=== PATIENT | female | born 1985 | race Caucasian/White ===

== ENCOUNTER 2018-02-21 10:44 | Emergency (ER) | payer BC ==
[~2018-02-21] VITALS: Ht 157.5 cm; Wt 90.9 kg
[2018-02-21 10:46] VITALS: BP 133/93; Ht 157.5 cm; Wt 90.9 kg
== END 2018-02-21 12:05 | disposition left against medical advice (07) ==
LOC: D.ER 10:44
DX: R51 Headache (principal)

== ENCOUNTER 2018-03-01 12:47 | Emergency (ER) | payer MEDICAID ==
[~2018-03-01] VITALS: Ht 157.5 cm; Wt 90.9 kg
[2018-03-01 12:59] VITALS: Ht 157.5 cm; Wt 90.9 kg
[2018-03-01] MEDS ORDERED: AMOXICILLIN500 M1 PO (13:41)
[2018-03-01 13:47] VITALS: BP 124/70
== END 2018-03-01 13:49 | disposition home or self-care (01) ==
LOC: D.ER 12:47
DX: J01.90 Acute sinusitis, unspecified (principal); R09.89 Other specified symptoms and signs involving the circulatory and respiratory systems; F17.200 Nicotine dependence, unspecified, uncomplicated

== ENCOUNTER 2019-10-23 07:11 | Inpatient (IN) | payer OTHER ==
[~2019-10-23] VITALS: Ht 157.5 cm; Wt 120.7 kg
[2019-10-23] VITALS (12 sets, daily range): BP systolic 105–158; BP diastolic 53–87; Ht 157.5 cm; Wt 120.7 kg
--- NOTE | 2019-10-23 | NUR ---
PT STATES PAIN MED HASN'T HELPED HER PAIN MUCH. FOB IN ROOM HELPING WITH BABY.
--- NOTE | ~2019-10-23 | OP ---
PATIENT NAME: MEAGHAN ELLIOTT MEDICAL RECORD: [id number] :[birth year] LOCATION:[id number] ADMISSION DATE:10/23/19 SURGEON: JUVE SARMIENTO MD DATE OF OPERATION: 10/23/2019 PREOPERATIVE DIAGNOSES: 1. Advanced maternal age. 2. at 39 weeks' gestation. 3. History of prior section. 4. Undesired fertility. POSTOPERATIVE DIAGNOSES: 1. Advanced maternal age. 2. at 39 weeks' gestation. 3. History of prior section. 4. Undesired fertility. PROCEDURES: 1. Repeat low transverse section. 2. Bilateral tubal ligation using a Butternut technique. SURGEON: Juve Sarmiento MD ANESTHESIOLOGIST: Dr. Carlitos Tran ANESTHETIC: Spinal. FINDINGS: Viable male , vertex presentation, Apgars 9 and 9. Nuchal cord times 1 reduced. Weight 8 pounds 6 ounces. Unremarkable anatomy. SPECIMENS REMOVED: 1. Placenta. 2. Tubes bilaterally. SPECIMEN DISPOSITION: 1. Discarded. 2. To pathology. ESTIMATED BLOOD LOSS: Less than or equal to 750 cc. FLUIDS: 2400 cc of lactated Ringer's. URINE OUTPUT: 40 cc of clear urine. COMPLICATIONS: None. DRAINS: Connor to gravity. INDICATIONS: The patient is a 34-year-old multiparous female who presents after 39 weeks gestation for repeat . The patient has undesired fertility. The risks, benefits, as well as alternatives to tubal ligation have been discussed. The patient wishes to proceed. DESCRIPTION OF PROCEDURE: After informed consent was assured, the patient was taken to the operating room where anesthetic is obtained. The patient is now OPERATIVE REPORT [id number] MEAGHAN ELLIOTT prepped and draped on the table. An incision was made over the old scar, carried down to the underlying layer of the fascia, which was opened in the midline and extended out laterally. The rectus bellies were dissected free superiorly and inferiorly and then in the midline. Peritoneum was entered sharply and bladder blade inserted. Bladder flap was developed and the bladder blade now reinserted. Low transverse hysterotomy was performed and delivered onto the abdomen atraumatically after rupture of membranes. Cord was doubly clamped and cut and the infant was passed off to the attendant. The uterus is not exteriorized, cleared of all clot and debris after placenta delivered. The hysterotomy was closed with running stitch of Vicryl. Interrupted stitches were applied at the left corner to obtain hemostasis. The attention directed to the right tube where it is elevated and a window made in the antimesenteric portion. Two ligatures were passed through here and secured distally and proximally and the intervening segment of tube removed. This was repeated on the contralateral side. All ostia sites are inspected and found to be hemostatic and cauterized. The uterus was returned to the abdomen. Inspection of the hysterotomy reveals adequate hemostasis. The fascia was now closed with a running stitch of looped PDS. Subcutaneous tissues were irrigated, bleeding vessels cauterized, and the deep space is closed with Monocryl. The 3-0 Monocryl stitch was used to reapproximate the skin. Dermabond was applied. Sponge, lap, needle counts were correct times 3 at the close of this procedure. TRANSINT:[id number] Voice Confirmation ID: [id number] DOCUMENT ID: [id number] JUVE SARMIENTO MD CC: [id number] DICTATION DATE: 10/23/19 1315 PEANUT PICKER: 10/24/19 0042 ADM IN [facility] [address] [id number]
[~2019-10-23 07:11] MED LIST: AMOXICILLIN500 M1 PO
[2019-10-23] MEDS ORDERED: BENADRYL50 MG PO (07:43)
[2019-10-23] MEDS ORDERED: SLEEP AID25 M1 PO (07:44)
[2019-10-23 08:31] LABS: HEMATOCRIT 36.3 % (36.0-48.0); HEMOGLOBIN 11.8 g/dL (12-16); MCHC 32.5 g/dL (31.0-37.0); MCV 95.3 fL (80.0-100.0); RBC 3.81 10x6/uL (4.00-5.40); RDW 13.9 % (11.5-14.5); WBC 10.2 10x3/uL (4.8-10.8)
[2019-10-23 09:31] LABS: BILIRUBIN NEGATIVE (NEGATIVE); GLUCOSE NEGATIVE (NEGATIVE); KETONE NEGATIVE (NEGATIVE); NITRITE NEGATIVE (NEGATIVE); UROBILINOGEN NORMAL (NORMAL)
[2019-10-23 09:34] LABS: BACTERIA MODERATE /hpf (NEGATIVE); EPITHELIAL CELLS 0-5 /hpf (0-5); RED CELLS - URINE 0-5 /hpf (0-5); WHITE CELLS - URINE RARE /hpf (NEGATIVE)
--- NOTE | 2019-10-23 11:24 | NUR ---
BABY BOY @ 1056 PLACENTA @ 105
--- NOTE | 2019-10-23 12:18 | MORECARE ---
CASE MANAGEMENT DISCHARGE SUMMARY PATIENT: MEAGHAN ELLIOTT UNIT: [id number] ADM DATE: 10/23/19 AGE: 34 : 81 SEX: F ROOM/BED: D.1274 AUTHOR: JJ JIMENEZ PHYSICIAN: REFERRING PHYSICIAN: MARK SARMIENTO MD DATE OF SERVICE: 10/23/19 Discharge Plan Patient Name: MEAGHAN ELLIOTT [facility] [facility] 1985 Planned Disposition: Home Anticipated Discharge Date: 10/27/19 Discharge Date: Expected LOS: 4 Initial Reviewer: [email or web address] Initial Review Date: 10/23/2019 Generated: 10/23/19 1:18 pm Patient Name: MEAGHAN ELLIOTT Page [phone] at 1218 All edits/amendments must be made on the electronic document DICTATION DATE: 10/23/19 121 MALTED MILK MIXER: RAUL 10/23/19 1218 RPT#: [id number] DC DATE: STATUS: ADM IN [facility] [address] [place] [address] END OF REPORT
--- NOTE | 2019-10-23 12:19 | NUR ---
RECEIVED PT FROM VIA BED TO ROOM 1274. BED LOCKED AND PLACED IN LOW POSITION. PT AWAKE. VSS. HRRR WITHOUT AUDIBLE MURMUR. BBS CLEAR. BS [id number]. ABDOMEN SOFT/NON-DISTENDED. FUNDUS FIRM AT 1/U. RUBRA LOCHIA SMALL AMT. NO CLOTS EXPRESSED ON FUNDAL MASSAGE. ABDOMINAL INCISION WITH DERMABOND. NO REDNESS, SWELLING OR DRAINAGE NOTED TO INCISION. PERIPAD TO INCISION. PPP. MILD NON-PITTING EDEMA NOTED TO BLE. SCDS ON BLE. PUMP ON. LEES TO GRAVITY DRAINING CLEAR, YELLOW URINE. PIV SITE CLEAR TO LEFT WRIST. NS WITH PITOCIN 20 UNITS INFUSING AT 125 ML/HR. PT DENIES PAIN AT THIS TIME. SR UP X 2. CALL LIGHT IN REACH.
--- NOTE | 2019-10-23 12:25 | NUR ---
PT INFORMED OF ORDERS FOR PAIN MEDS. PT STATES HAS ALLERGY TO ADVIL. STATES THROAT SWELLS UP. ALLERGY DOCUMENTED AND NOTED.
--- NOTE | 2019-10-23 13:50 | NUR ---
PT SIG OTHER TO UNIT DESK STATING PT IS WANTING SOMETHING FOR PAIN. THIS RN TO ROOM. PT RATES PAIN 5/10 AT INCISION, STATES IT IS APPROX 7/10 WHEN COUGHING. PT ADMIN PRN DILAUDID ORDERED FOR PAIN, SEE EMAR FOR DOC. PT REQUESTING NICOTINE PATCH WELL. WILL ADMIN ORDERED.
--- NOTE | 2019-10-23 13:57 | NUR ---
NICOTINE PATCH TO RIGHT UPPER ARM, ICE PROVIDED PER REQUEST. PT DENIES FURTHER NEEDS. SRUX2, CL IN REACH.SIG OTHER AT BEDSIDE HOLDING INFANT.
--- NOTE | 2019-10-23 14:31 | NUR ---
PT SITTING UP IN BED. DROWSY. STATES PAIN OF "2" ON 0-10 PAIN SCALE. STATES WILL TRY TO NAP.
--- NOTE | 2019-10-23 15:50 | NUR ---
PT LYING IN SEMI-BAILEY'S POSITION IN BED. EYES CLOSED. RESP NON-LABORED. PT NOT DISTURBED TO ALLOW FOR REST. SR UP X 2. CALL LIGHT IN REACH.
--- NOTE | 2019-10-23 16:17 | MORECARE ---
CASE MANAGEMENT DISCHARGE SUMMARY PATIENT: MEAGHAN ELLIOTT UNIT: [id number] ADM DATE: 10/23/19 AGE: 34 : 81 SEX: F ROOM/BED: D.1274 AUTHOR: JJ JIMENEZ PHYSICIAN: REFERRING PHYSICIAN: MARK SARMIENTO MD DATE OF SERVICE: 10/23/19 Discharge Plan Patient Name: MEAGHAN ELLIOTT [facility] [facility] 1985 Planned Disposition: Home Anticipated Discharge Date: 10/27/19 Discharge Date: Expected LOS: 4 Initial Reviewer: [email or web address] Initial Review Date: 10/23/2019 Generated: 10/23/19 5:16 pm Last DP export: 10/23/19 11:18 a Patient Name: MEAGHAN ELLIOTT Page [phone] at 1617 All edits/amendments must be made on the electronic document DICTATION DATE: 10/23/19 161 CIS COORDINATOR: RAUL 10/23/19 1616 RPT#: [id number] DC DATE: STATUS: ADM IN [facility] [address] [place] [address] END OF REPORT
--- NOTE | 2019-10-23 17:15 | NUR ---
I/O COMPLETED. PT SITTING UP IN BED. C/O INCISIONAL PAIN. FUNDUS FIRM AT U/U. RUBRA LOCHIA MOD AMT. NO CLOTS EXPRESSED. ABDOMINAL INCISION WITHOUT REDNESS, SWELLING OR DRAINAGE NOTED. PERIPAD TO INCISION WITHOUT DRAINAGE/DRY. PERICARE DONE. CHUX, PERIPAD AND PINK PAD CHANGED. PT MOVES PER SELF IN BED. TCDB AND PULLS 1000 ON INCENTIVE SPIROMETER. PT HAS NON-PRODUCTIVE COUGH. PT IS 1 PACK PER DAY SMOKER. PT INSTRUCTED ON IMPORTANCE OF TCDB AND USING INCENTIVE SPIROMETER TO PREVENT PNEUMONIA. PT VERBALIZES UNDERSTANDING.
--- NOTE | 2019-10-23 17:49 | NUR ---
PT C/O INCISIONAL PAIN OF "8" ON 0-10 PAIN SCALE. DILAUDID 2 MG GIVEN SIVP OVER 2 MINUTES. PT INSTRUCTED ON MED. VERBALIZES UNDERSTANDING.
--- NOTE | 2019-10-23 19:00 | NUR ---
REPORT GIVEN BY MAGDIEL
--- NOTE | 2019-10-23 19:10 | NUR ---
PT SITTING UP IN BED. VISITS WITH SO. DENIES NEEDS OR C/O. STATES FEELING BETTER SINCE PAIN MEDICATION.
--- NOTE | 2019-10-23 19:49 | NUR ---
ASSESSMENT COMPLETED. PT IS A FROM TODAY. SHE IS RESTING WELL AT THIS TIME. SHE IS ALLERGIC TO ASA, ADVIL, AND AMBIEN. SHE HAS AN IV IN HER LEFT WRIST THAT IS SALINE LOCKED. SHE HAS BEEN TAUGHT HOW TO USE HER INCENTIVE SPIROMETER AND THIS IS ENCOURAGED TO USE. PT HAS NO N/V. SHE HAS A LEES CATHETER IN PLACE DRAINING WELL. SHE MOVES HERSELF AROUND IN BED WELL. FATHER OF BABY IS EXCELLENT. HE DOES WELL WITH THE BABY. PT HAS NO C/O AT THIS TIME.
--- NOTE | 2019-10-23 22:53 | NUR ---
PT C/O PAIN AT INCISION SITE. PO PERCOCET 10 WAS GIVEN PO. FUNDUS IS FIRM. BABY IS IN CRIB.
--- NOTE | 2019-10-24 00:15 | NUR ---
PT IS CRYING WITH PAIN. SHE STATES THE PERCOCET DIDN'T HELP AT ALL. SHE GIVEN 2 MG IV DILAUDID. FOB STATES HE WILL TAKE CARE OF BABY DURING THIS TIME. BABY IN CRIB. WHEN YOU LOOK ON THE FACE OF THIS PT YOU CAN TELL SHE IS IN PAIN.
--- NOTE | 2019-10-24 02:00 | NUR ---
PT IS RESTING WELL. SHE IS VERY DROWSY. FOB HOLDING THE BABY. SHE STATES HER PAIN LEVEL IS 4 WHEN IT WAS A 10 BEFORE THE IV MEDICATION.
[2019-10-24 04:00] VITALS: BP 129/74
--- NOTE | 2019-10-24 04:18 | NUR ---
PT STATES SHE IS STARTING TO HURT AND RATES HER PAIN A 6. PERCOCET 10 GIVEN PO. SHE IS FEELING ALOT BETTER WITH THE REST THAT SHE HAS HAD. PADS CHANGED. LOCHIA IS MOD. FUNDUS FIRM
[2019-10-24 06:09] LABS: RAPID PLASMA REAGIN Non Reactive (Non Reactive)
--- NOTE | 2019-10-24 06:45 | NUR ---
PT IS AWAKE AND ALERT NOW. LEES REMOVED WITH 1400 ML EMPTIED. ENCOURAGED PT TO USE HER INCINTIVE SPIROMETER TODAY. I ALSO ENCOURAGED HER TO MOVE AROUND MORE. I EXPLAINED THAT SHE COULD GET PNEUMONIA IS SHE DIDN'T. SHE REALLY DOESN'T RESPOND BUT LOOKS AT YOU WHEN YOU TELL HER SOMETHING. EVERY TIME SHE MOVES SHE MOANS BUT HER PAIN LEVEL IS ABOUT A 3 NOW. MOTHER AT BEDSIDE CHANGING THE BABY.
--- NOTE | 2019-10-24 06:52 | NUR ---
PT IS AWAKE AND ALERT AT THIS TIME. PAIN LEVEL IS ABOUT 4. LEES REMOVED WITH 1000ML DRAINED. SO IS FEEDING THE BABY. ENCOURAGED PT TO USE HER IS TODAY EVERY HOUR FOR 5 TIMES AND MOVE AROUND MORE. SHE UNDERSTANDS. SO IS WONDERFUL WITH THE BABY AND WILL DO ANYTHING YOU ASK HIM TO.
--- NOTE | 2019-10-24 08:45 | NUR ---
PAIN MED GIVEN REQUESTED. PT STATES THAT SHE JUST GOT UP TO BATHROOM, VOIDED 200ML TO COLLECTION HAT AND IS RATING PAIN AT 5-6/10. FUNDUS FIRM AT U/U WITH LIGHT BLEEDING NOTED. BIKINI INCISION CLEAN AND DRY WITH ABD DRESSING STILL IN PLACE. SALINE LOCK PATENT AND EASILY FLUSHED WITH 5ML NS. INFANT IN CRIB AT BEDSIDE AND PT SIG OTHER ALSO PRESENT.
--- NOTE | 2019-10-24 09:30 | NUR ---
PAIN REASSESSMENT AT THIS TIME, RATES PAIN AT 2/10 AND DENIES ANY NEEDS AT THIS TIME.
--- NOTE | 2019-10-24 10:53 | NUR ---
PT SITTING UP IN BED FEEDING . RATES PAIN AT 3/10, DENIES ANY NEEDS AT THIS TIME.
[2019-10-24 12:15] VITALS: BP 130/82
--- NOTE | 2019-10-24 12:15 | NUR ---
to pt's room, assessment completed. pt states she has not been using i/s, incentive spirometer taught, pt states "i know how, have just not been using it". pt encouraged to use i/s, and perform coughing and deep breathing exercises while splinting abdomen. pt reports she has not passed gas yet, is up to br per self, and voiding per self without difficulty, unmeasured. pericare done per self. clean linens provided, new peripads/panties provided, clean gown on. new ice pack provided for incision, and over gown. inicision is c/d/i, glue noted, no redness or drainage. pt is using clean peripad over incision for comfort. see emar for all meds adm by this rn. large mug of ice water served to pt. sr up x2, call light and phone within reach. sig other at bedside.
--- NOTE | 2019-10-24 13:15 | NUR ---
dr. martinez on unit, to room to speak with pt.
--- NOTE | 2019-10-24 17:15 | NUR ---
pt ambulatory in hallways, with sig other, to nursery and then back to room. pt smiling, and denies needs at this time. pt denies sob, difficulty breathing, or nausea. pt continues to use incentive spirometer well, coughing and deep breathing exercises well, productive, clear small amount of phlegm coughed up, bilateral lung sounds clear. sig other at pt's side. pt denies passing gas as yet. srup x2, call light and phone within reach.
--- NOTE | 2019-10-24 19:00 | NUR ---
REPORT GIVEN BY TAWANA BIGGS
[2019-10-24 20:00] VITALS: BP 134/62
--- NOTE | 2019-10-24 20:35 | NUR ---
PT NICOTINE PATCH CAME OFF ON THE DAY SHIFT. I WAS ASKED TO GET HER A NEW ONE. THE NEW ONE WAS PLACED ON HER LEFT SHOULDER. SHE STATES SHE'D LIKE SOME OF THIS KIND OF PATCHES TO BE GIVEN TO HER AT DISCHARGE.
--- NOTE | 2019-10-24 21:45 | NUR ---
PT REQUESTED JOSEIEN FOR SLEEP. THIS WAS GIVEN TO HER.
--- NOTE | 2019-10-24 22:30 | NUR ---
PT AND SO SHARING A SANDWICH. NO NEW C/O. PT DOES NOT SEEM SLEEPY FROM LC. SO HELPED HER UP TO THE BR.
[2019-10-25] VITALS: BP 132/69
--- NOTE | 2019-10-25 00:39 | NUR ---
PERCOCET 10 MG GIVEN PO PER REQUEST OF PT. PAIN IS A 6.
--- NOTE | 2019-10-25 02:00 | NUR ---
PT IS RESTING QUIETLY WITH NO C/O. SO IS ALSO RESTING. BABY IS IN HIS CRIB SLEEPING WELL.
[2019-10-25 04:00] VITALS: BP 117/68
--- NOTE | 2019-10-25 04:25 | NUR ---
PT IS AWAKE FOR VS. SHE ASKED FOR A PAIN PILL. SHE WAS GIVEN A PO PERCOCET 10. SHE RATES HE PAIN A 6. BABY IS SLEEPING IN THE CRIB. NO NEEDS AT THIS TIME.
--- NOTE | 2019-10-25 08:45 | NUR ---
AM ASSESSMENT COMPLETED. SEE FLOW SHEET. PT DENIES HEAVY BLEEDING OR PASSING CLOTS. PT CONTINUES TO USE INCENTIVE SPIROMETER, COUGHING AND DEEP BREATHING EXERCISES. FRESH ICE WATER SERVED. SEE EMAR FOR ALL MEDS ADM BY THIS RN. SRUP X2, CALL LIGHT AND PHONE WITHIN REACH.
[2019-10-25 08:47] VITALS: BP 140/75
--- NOTE | 2019-10-25 09:27 | NUR ---
DR. SARMIENTO CALLS TO UNIT, PROGRESS REPORT GIVEN TO MD. INFORMED PT IS REQUESTING TO GO HOME WITH A NICOTINE PRESCRIPTION. MD WILL ROUND THIS AM.
--- NOTE | 2019-10-25 10:30 | NUR ---
DR. SARMIENTO ON UNIT, MD TO ROOM TO SPEAK WITH PT. WILL DISCHARGE PT TODAY, OR MAY ROOM IN IF BABY IS NOT DISCHARGED BY PEDS TODAY.
--- NOTE | 2019-10-25 11:30 | NUR ---
PT AMBULATORY IN HALLWAY TO NURSE DESK, AND THEN BACK TO ROOM. PT IS UP TO BR PER SELF, VOIDS UNMEASURED AMOUNT. PERICARE DONE PER SELF, PERIPANTIES/PADS PROVIDED. PT DRESSED IN OWN CLOTHING. PT DENIES ALL OTHER NEEDS AT THIS TIME. SRUP X2, CALL LIGHT AND PHONE WITHIN REACH. SEE EMAR FOR ALL MEDS ADM BY THIS RN.
[2019-10-25 13:00] VITALS: BP 128/79
[2019-10-25] MEDS ORDERED: PERCOCET 7.5/321 TAB PO (13:23)
--- NOTE | 2019-10-25 13:50 | NUR ---
TO ROOM, PT IS SITTING UP IN BEDSIDE CHAIR, SEE EMAR FOR ALL MEDS ADM BY THIS RN. DISCHARGE INSTRUCTIONS EXPLAINED TO PT, WITH COPIES PROVIDED TO PT, AND PRESCRIPTION GIVEN. VERBAL ORDER RECEIVED EARLIER FROM DR. SARMIENTO MAY CALL IN NICOTINE PATCH FOR PT PER HER REQUEST FOR THEM. NICOTINE 7 MG/24 HR PATCH #28 CALLED TO /[facility]. PT DENIES ALL QUESTIONS AT THIS TIME. WILL DISCHARGE TO ROOM IN BABY WILL STAY ANOTHER DAY. CLEAN LINENS/PERIPADS/PANTIES PROVIDED, BED LINENS CHANGED, AND SHOWER CHAIR PROVIDED. IV DC'D WITH CATH INTACT. PT DENIES ALL OTHER NEEDS AT THIS TIME. SRUP X2, CALL LIGHT AND PHONE WITHIN REACH. SIG OTHER AT BEDSIDE.
--- NOTE | 2019-10-25 16:55 | MORECARE ---
CASE MANAGEMENT DISCHARGE SUMMARY PATIENT: MEAGHAN ELLIOTT UNIT: [id number] ADM DATE: 10/23/19 AGE: 34 : [birth year] SEX: F ROOM/BED: D.1221 AUTHOR: JJ JIMENEZ PHYSICIAN: REFERRING PHYSICIAN: MARK SARMIENTO MD DATE OF SERVICE: 10/25/19 Discharge Plan Patient Name: MEAGHAN ELLIOTT [facility] [facility] 1985 Planned Disposition: Home Anticipated Discharge Date: 10/27/19 Discharge Date: Expected LOS: 4 Initial Reviewer: [email or web address] Initial Review Date: 10/23/2019 Generated: 10/25/19 5:54 pm Last DP export: 10/23/19 3:17 p Patient Name: MEAGHAN ELLIOTT Page [id number] at 1655 All edits/amendments must be made on the electronic document DICTATION DATE: 10/25/191653 WIRED MUSIC OPERATOR: RAUL 10/25/191653 RPT#: [id number] DC DATE: STATUS: ADM IN [facility] [address] [place] [address] END OF REPORT
--- NOTE | 2019-10-25 17:13 | MORECARE ---
CASE MANAGEMENT DISCHARGE SUMMARY PATIENT: MEAGHAN ELLIOTT UNIT: [id number] ADM DATE: 10/23/19 AGE: 34 : 81 SEX: F ROOM/BED: D.1221 AUTHOR: JJ JIMENEZ PHYSICIAN: REFERRING PHYSICIAN: MARK SARMIENTO MD DATE OF SERVICE: 10/25/19 Discharge Plan Patient Name: MEAGHAN ELLIOTT [facility] [facility] 1985 Planned Disposition: Home Anticipated Discharge Date: 10/27/19 Discharge Date: Expected LOS: 4 Initial Reviewer: [email or web address] Initial Review Date: 10/23/2019 Generated: 10/25/19 6:12 pm Last DP export: 10/25/19 3:55 p Patient Name: MEAGHAN ELLIOTT Page [phone] at 1713 All edits/amendments must be made on the electronic document DICTATION DATE: 10/25/191711 PILLOWCASE FOLDER: RAUL 10/25/191711 RPT#: [id number] DC DATE: STATUS: ADM IN [facility] [address] [place] [address] END OF REPORT
--- NOTE | 2019-10-25 17:34 | MORECARE ---
CASE MANAGEMENT DISCHARGE SUMMARY PATIENT: MEAGHAN ELLIOTT UNIT: [id number] ADM DATE: 10/23/19 AGE: 34 : 81 SEX: F ROOM/BED: D.1221 AUTHOR: JJ JIMENEZ PHYSICIAN: REFERRING PHYSICIAN: MARK SARMIENTO MD DATE OF SERVICE: 10/25/19 Discharge Plan Patient Name: MEAGHAN ELLIOTT [facility] [facility] 1985 Planned Disposition: Home Anticipated Discharge Date: 10/27/19 Discharge Date: 10/25/2019 Expected LOS: 4 Initial Reviewer: [email or web address] Initial Review Date: 10/23/2019 Generated: 10/25/19 6:33 pm Last DP export: 10/25/19 4:13 p Patient Name: MEAGHAN ELLIOTT Page 53465 at 1734 All edits/amendments must be made on the electronic document DICTATION DATE: 10/25/191732 SALES OFFICE ADMINISTRATOR: RAUL 10/25/191732 RPT#: [id number] DC DATE:10/25/19 STATUS: DIS IN [facility] [address] [place] [address] END OF REPORT
--- NOTE | 2019-10-28 17:23 | MORECARE ---
CASE MANAGEMENT DISCHARGE SUMMARY PATIENT: MEAGHAN ELLIOTT UNIT: [id number] ADM DATE: 10/23/19 AGE: 34 : 81 SEX: F ROOM/BED: D.1221 AUTHOR: JJ JIMENEZ PHYSICIAN: REFERRING PHYSICIAN: MARK SARMIENTO MD DATE OF SERVICE: 10/28/19 Discharge Plan Patient Name: MEAGHAN ELLIOTT [facility] [facility] 1985 Planned Disposition: Home Anticipated Discharge Date: 10/27/19 Discharge Date: 10/25/2019 Expected LOS: 4 Initial Reviewer: [email or web address] Initial Review Date: 10/23/2019 Generated: 10/28/19 6:22 pm Last DP export: 10/25/19 4:34 p Patient Name: MEAGHAN ELLIOTT Page [id number] at 1723 All edits/amendments must be made on the electronic document DICTATION DATE: 10/28/191722 METAL BUGGY OPERATOR: RAUL 10/28/191722 RPT#: [id number] DC DATE:10/25/19 STATUS: DIS IN [facility] [address] [place] [address] END OF REPORT
== END 2019-10-25 13:50 | disposition home or self-care (01) | DRG 785 ==
LOC: D.LD 07:11 → D.WS 07:11
PROVIDERS: ADMIT Obstetrics & Gynecology; ATTEND Obstetrics & Gynecology
PROC: 10D00Z1 Extraction of Products of Conception, Low, Open Approach (ICD-10-PCS; principal; 2019-10-23 09:30)
PROC: 0UB70ZZ Excision of Bilateral Fallopian Tubes, Open Approach (ICD-10-PCS; 2019-10-23 09:30)
DX: O34.219 Maternal care for unspecified type scar from previous cesarean delivery (principal); Z3A.39 39 weeks gestation of pregnancy; Z37.0 Single live birth; Z30.2 Encounter for sterilization; O99.334 Smoking (tobacco) complicating childbirth; F17.200 Nicotine dependence, unspecified, uncomplicated